=== PATIENT | female | born 1940 | race African-American/Black ===

== ENCOUNTER → 2016-12-24 | Outpatient (CLI) | payer MEDICARE, BC | END | disposition home or self-care (01) | LOC: MRI 09:36 | PROVIDERS: ATTEND Internal Medicine Nephrology | DX: M22.42 Chondromalacia patellae, left knee (principal); M25.462 Effusion, left knee | CPT/HCPCS: 73721 ==

== ENCOUNTER → 2017-08-06 | Outpatient (CLI) | payer MEDICARE, BC | END | disposition home or self-care (01) | LOC: MRI 16:37 | PROVIDERS: ATTEND Internal Medicine Nephrology | DX: M47.896 Other spondylosis, lumbar region (principal); M48.061 Spinal stenosis, lumbar region without neurogenic claudication | CPT/HCPCS: 72148 ==

== ENCOUNTER → 2017-11-11 | Outpatient (CLI) | payer MEDICARE, BC ==
[~2017-11-11] MED LIST: BARIUM SULFATE 450ML ORAL SUSP ONE; IOHEXOL-300 100 ML BOTTLE ONE
== END | disposition home or self-care (01) ==
LOC: MAMMO 09:15
PROVIDERS: ATTEND Internal Medicine Nephrology
DX: Z12.31 Encounter for screening mammogram for malignant neoplasm of breast (principal); D25.9 Leiomyoma of uterus, unspecified; R19.09 Other intra-abdominal and pelvic swelling, mass and lump
CPT/HCPCS: 71260; 74177; 77067; Q9967

== ENCOUNTER → 2018-01-12 | Outpatient (CLI) | payer MEDICARE, BC ==
[2018-01-12 14:51] LABS: BASOPHILS % 0.6 % (0.0-2.0); EOSINOPHILS % 2.3 % (0.0-5.0); MEAN CORPUSCULAR HEMOGLOBIN 27.7 pg (28.0-32.0); MEAN CORPUSCULAR VOLUME 83.4 fL (81.0-99.0); MEAN PLATELET VOLUME 7.3 fl (7.4-10.4); MONOCYTES % 11.1 % (2.0-8.0); PLATELET 330 x1000/uL (130-400); RED BLOOD CELL COUNT 3.24 mill/uL (4.2-5.4); RED CELL DISTRIBUTION WIDTH 15.7 % (11.6-14.6)
[2018-01-12 14:57] LABS: CHLORIDE 101 mEq/L (98-107)
== END | disposition home or self-care (01) ==
LOC: LAB 13:47
PROVIDERS: ATTEND Internal Medicine Hematology & Oncology
DX: C56.1 Malignant neoplasm of right ovary (principal)
CPT/HCPCS: 36415; 82378; 86304

== ENCOUNTER 2018-03-24 14:12 | Inpatient (IN) | payer MEDICARE, BC ==
[~2018-03-24] VITALS: Ht 157.5 cm; Wt 59.9 kg
[2018-03-25] VITALS (13 sets, daily range): BP systolic 96–123; BP diastolic 48–66
[2018-03-25] MEDS ORDERED: ONDANSETRON HCL 4MG/2ML INJ IV PRN (04:45)
[2018-03-25] MEDS ORDERED: DIPHENHYDRAMINE 50MG/ML VIAL IV PRN (04:45)
[2018-03-25] MEDS ORDERED: DOCUSATE SODIUM 100MG CAPSULE PO PRN (04:45)
[2018-03-25] MEDS ORDERED: CLONIDINE 0.1MG TABLET PO PRN (04:45)
[2018-03-25 04:57] LABS: BASOPHILS % 0.7 % (0.0-2.0); LYMPHOCYTES % 23.3 % (20.0-50.0); MEAN CORPUSCULAR HEMOGLOBIN 22.4 pg (28.0-32.0); MEAN CORPUSCULAR VOLUME 72.4 fL (81.0-99.0); MEAN PLATELET VOLUME 7.3 fl (7.4-10.4); MONOCYTES % 11.9 % (2.0-8.0); NEUTROPHILS % 63.1 % (40.0-76.0); PLATELET 538 x1000/uL (130-400); RED BLOOD CELL COUNT 2.49 mill/uL (4.2-5.4); RED CELL DISTRIBUTION WIDTH 18.7 % (11.6-14.6)
[2018-03-25 05:06] LABS: HEMOGLOBIN. 5.6 g/dL (12.0-16.0)
[2018-03-25 05:14] LABS: CHLORIDE 104 mEq/L (98-107)
[2018-03-25 05:20] LABS: TOTAL IRON BINDING CAPACITY 410 ug/dL (250-450)
[2018-03-25 05:45] LABS: VITAMIN B12 SERUM 918 pg/mL (211-911)
[2018-03-25] MEDS ORDERED: DIATR MEGLU/DIATRIZOATE SOLN 30ML PO SCH (08:45)
[2018-03-25] MEDS: HEMORRHOIDAL SUPP PR SCH ×2 (11:30→20:27)
[2018-03-25] MEDS: PANTOPRAZOLE SODIUM 40 MG/VIAL IV SCH ×2 (15:01→20:27)
[2018-03-25] MEDS: IRON SUCROSE COMPLEX 100 MG/5 ML ML IV SCH (15:01)
[2018-03-25 18:38] LABS: HEMATOCRIT 22.5 % (36.0-48.0); HEMOGLOBIN 7.1 g/dL (12.0-16.0)
[2018-03-25 18:39] LABS: INR 1.1; PROTHROMBIN TIME 11.4 sec (9.1-11.1)
[2018-03-25] MEDS: ACETAMINOPHEN 325MG TABLET PO PRN (23:44)
[2018-03-26] VITALS (7 sets, daily range): BP systolic 83–138; BP diastolic 46–75
[2018-03-26 05:44] LABS: BASOPHILS % 0.5 % (0.0-2.0); EOSINOPHILS % 0.8 % (0.0-5.0); HEMATOCRIT. 27.6 % (36.0-48.0); HEMOGLOBIN. 8.9 g/dL (12.0-16.0); LYMPHOCYTES % 18.6 % (20.0-50.0); MEAN CORPUSCULAR HEMOGLOBIN 24.2 pg (28.0-32.0); MEAN CORPUSCULAR VOLUME 75.7 fL (81.0-99.0); MEAN PLATELET VOLUME 7.6 fl (7.4-10.4); MONOCYTES % 10.6 % (2.0-8.0); NEUTROPHILS % 69.5 % (40.0-76.0); PLATELET 556 x1000/uL (130-400); RED BLOOD CELL COUNT 3.65 mill/uL (4.2-5.4); RED CELL DISTRIBUTION WIDTH 19.5 % (11.6-14.6)
[2018-03-26 05:48] LABS: INR 1.2; PROTHROMBIN TIME 11.6 sec (9.1-11.1)
[2018-03-26 06:09] LABS: CHLORIDE 103 mEq/L (98-107)
[2018-03-26] MEDS: ACETAMINOPHEN 325MG TABLET PO PRN (06:24)
[2018-03-26] MEDS: PANTOPRAZOLE SODIUM 40 MG/VIAL IV SCH ×2 (08:13→20:43)
[2018-03-26] MEDS: IRON SUCROSE COMPLEX 100 MG/5 ML ML IV SCH (08:13)
[2018-03-26] MEDS: HEMORRHOIDAL SUPP PR SCH ×2 (08:25→20:49)
[2018-03-26 09:45] LABS: BASOPHILS % 0.5 % (0.0-2.0); HEMATOCRIT. 26.1 % (36.0-48.0); HEMOGLOBIN. 8.4 g/dL (12.0-16.0); LYMPHOCYTES % 19.3 % (20.0-50.0); MEAN CORPUSCULAR HEMOGLOBIN 24.5 pg (28.0-32.0); MEAN CORPUSCULAR VOLUME 76.3 fL (81.0-99.0); MEAN PLATELET VOLUME 7.3 fl (7.4-10.4); MONOCYTES % 11.3 % (2.0-8.0); NEUTROPHILS % 67.9 % (40.0-76.0); PLATELET 539 x1000/uL (130-400); RED BLOOD CELL COUNT 3.42 mill/uL (4.2-5.4); RED CELL DISTRIBUTION WIDTH 19.6 % (11.6-14.6)
[2018-03-26] MEDS: HYDROCODONE/ACETAMINOPHEN 5/325MG TABLET PO PRN (21:23)
[2018-03-26 22:03] LABS: HEMATOCRIT 26.4 % (36.0-48.0); HEMOGLOBIN 8.4 g/dL (12.0-16.0)
[2018-03-27 00:11] VITALS: BP 127/68
[2018-03-27 04:00] VITALS: BP 117/69
[2018-03-27 07:31] LABS: CHLORIDE 104 mEq/L (98-107)
[2018-03-27 07:53] LABS: BASOPHILS % 0.3 % (0.0-2.0); EOSINOPHILS % 0.7 % (0.0-5.0); HEMATOCRIT. 24.3 % (36.0-48.0); HEMOGLOBIN. 7.7 g/dL (12.0-16.0); MEAN CORPUSCULAR HEMOGLOBIN 24.2 pg (28.0-32.0); MEAN CORPUSCULAR VOLUME 75.9 fL (81.0-99.0); MEAN PLATELET VOLUME 7.5 fl (7.4-10.4); MONOCYTES % 11.7 % (2.0-8.0); NEUTROPHILS % 70.3 % (40.0-76.0); PLATELET 471 x1000/uL (130-400); RED BLOOD CELL COUNT 3.21 mill/uL (4.2-5.4); RED CELL DISTRIBUTION WIDTH 20.6 % (11.6-14.6)
[2018-03-27 08:00] VITALS: BP 112/66
[2018-03-27] MEDS ORDERED: IRON SUCROSE COMPLEX 100 MG in SODIUM CHLORIDE 0.9% 100 ML IV SCH (09:00)
[2018-03-27] MEDS: PANTOPRAZOLE SODIUM 40 MG/VIAL IV SCH (10:55)
[2018-03-27] MEDS: HEMORRHOIDAL SUPP PR SCH (11:23)
[2018-03-27 11:41] LABS: HEMATOCRIT 26.4 % (36.0-48.0); HEMOGLOBIN 8.5 g/dL (12.0-16.0)
[2018-03-27 12:00] VITALS: BP 118/71
[2018-03-27 13:48] VITALS: BP 119/76
[2018-03-27] MEDS: HYDROCODONE/ACETAMINOPHEN 5/325MG TABLET PO PRN (13:48)
[2018-03-28] MEDS ORDERED: IRON SUCROSE COMPLEX 100 MG/5 ML ML IV SCH (09:00)
== END 2018-03-27 18:30 | disposition home or self-care (01) | DRG 812 ==
LOC: 6EST 14:12
PROVIDERS: ADMIT Internal Medicine Nephrology; ATTEND Internal Medicine Nephrology
PROC: 30233N1 Transfusion of Nonautologous Red Blood Cells into Peripheral Vein, Percutaneous Approach (ICD-10-PCS; principal; 2018-03-25)
DX: D50.9 Iron deficiency anemia, unspecified (principal); C78.7 Secondary malignant neoplasm of liver and intrahepatic bile duct; R18.8 Other ascites; C56.9 Malignant neoplasm of unspecified ovary; C78.00 Secondary malignant neoplasm of unspecified lung; C79.81 Secondary malignant neoplasm of breast; D25.9 Leiomyoma of uterus, unspecified; I10 Essential (primary) hypertension; K59.00 Constipation, unspecified; N83.9 Noninflammatory disorder of ovary, fallopian tube and broad ligament, unspecified; K64.8 Other hemorrhoids; Z79.899 Other long term (current) drug therapy
CPT/HCPCS: 36415; 76705; 80048; 82270; 82607; 83540; 83550; 83735; 84484; 85014; 85018; 85049; 85384; 86850; 86900; 86920; 93005; 93970; C9113; J2405; J7040; J7050; P9016

== ENCOUNTER 2018-03-30 14:06 | Inpatient (IN) | payer MEDICARE, BC ==
[~2018-03-30] VITALS: Ht 157.5 cm; Wt 59.9 kg
[2018-03-30] MEDS ORDERED: ACETAMINOPHEN 325MG TABLET PO PRN (14:45)
[2018-03-30] MEDS ORDERED: ONDANSETRON HCL 4MG/2ML INJ IV PRN (14:45)
[2018-03-30] MEDS ORDERED: CLONIDINE 0.1MG TABLET PO PRN (14:45)
[2018-03-30 15:30] VITALS: BP 106/65
[2018-03-30 16:00] VITALS: BP 107/65
[2018-03-30 17:50] LABS: HEMATOCRIT. 25.6 % (36.0-48.0); HEMOGLOBIN. 8.1 g/dL (12.0-16.0); MEAN CORPUSCULAR HEMOGLOBIN 24.7 pg (28.0-32.0); MEAN CORPUSCULAR VOLUME 77.9 fL (81.0-99.0); MEAN PLATELET VOLUME 7.4 fl (7.4-10.4); PLATELET 395 x1000/uL (130-400); RED BLOOD CELL COUNT 3.29 mill/uL (4.2-5.4); RED CELL DISTRIBUTION WIDTH 22.8 % (11.6-14.6)
[2018-03-30 17:58] LABS: CHLORIDE 102 mEq/L (98-107)
[2018-03-30 18:04] LABS: TOTAL IRON BINDING CAPACITY 305 ug/dL (250-450)
[2018-03-30 18:18] LABS: PLATELET ESTIMATE NORMAL
[2018-03-30 20:00] VITALS: BP 115/74
[2018-03-30] MEDS: PANTOPRAZOLE SODIUM 40 MG/VIAL IV SCH (21:53)
[2018-03-30] MEDS ORDERED: HYDROCODONE/ACETAMINOPHEN 5/325MG TABLET PO PRN (22:15)
[2018-03-30] MEDS ORDERED: KETOROLAC 15MG/ML VIAL IV NR (22:30)
[2018-03-30 23:42] LABS: HEMATOCRIT 23.3 % (36.0-48.0); HEMOGLOBIN 7.5 g/dL (12.0-16.0)
[2018-03-31] VITALS: BP 142/80
[2018-03-31 04:00] VITALS: BP 117/66
[2018-03-31 07:23] LABS: HEMATOCRIT. 25.1 % (36.0-48.0); MEAN CORPUSCULAR VOLUME 78.3 fL (81.0-99.0); MEAN PLATELET VOLUME 7.7 fl (7.4-10.4); PLATELET 403 x1000/uL (130-400); RED BLOOD CELL COUNT 3.21 mill/uL (4.2-5.4); RED CELL DISTRIBUTION WIDTH 23.5 % (11.6-14.6)
[2018-03-31 08:00] VITALS: BP 122/68
[2018-03-31 08:11] LABS: CHLORIDE 101 mEq/L (98-107)
[2018-03-31 08:19] LABS: PHOSPHORUS 3.2 mg/dL (2.5-4.9)
[2018-03-31] MEDS ORDERED: POTASSIUM CHLORIDE 20MEQ TABLET SR PO NR (09:30)
[2018-03-31] MEDS: PANTOPRAZOLE SODIUM 40 MG/VIAL IV SCH ×3 (10:53→22:08)
[2018-03-31] MEDS: KETOROLAC 15MG/ML VIAL IV PRN ×2 (10:55→22:10)
[2018-03-31 12:00] VITALS: BP 89/53
[2018-03-31] MEDS ORDERED: FERROUS SULFATE 325MG TABLET PO SCH (12:50)
[2018-03-31 16:00] VITALS: BP 118/73
[2018-03-31] MEDS ORDERED: SORBITOL 70% SOLN 30ML PO SCH ×2 (16:00→20:00)
[2018-03-31 16:55] LABS: HEMATOCRIT 26.9 % (36.0-48.0); HEMOGLOBIN 8.5 g/dL (12.0-16.0)
[2018-03-31 20:38] LABS: PLATELET ESTIMATE INCREASED
[2018-03-31] MEDS: DEXT 5%/0.9% NACL 1,000 ML IV SCH (22:07)
[2018-03-31 23:48] LABS: HEMATOCRIT 24.6 % (36.0-48.0); HEMOGLOBIN 7.8 g/dL (12.0-16.0)
[2018-04-01] VITALS (8 sets, daily range): BP systolic 102–152; BP diastolic 61–83
[2018-04-01] MEDS: KETOROLAC 15MG/ML VIAL IV PRN (05:45)
[2018-04-01 06:29] LABS: CHLORIDE 105 mEq/L (98-107)
[2018-04-01 06:34] LABS: HEMOGLOBIN. 7.8 g/dL (12.0-16.0); MEAN CORPUSCULAR HEMOGLOBIN 24.8 pg (28.0-32.0); MEAN CORPUSCULAR VOLUME 78.8 fL (81.0-99.0); PLATELET 388 x1000/uL (130-400); RED BLOOD CELL COUNT 3.17 mill/uL (4.2-5.4); RED CELL DISTRIBUTION WIDTH 24.8 % (11.6-14.6)
[2018-04-01 06:37] LABS: PHOSPHORUS 3.2 mg/dL (2.5-4.9)
[2018-04-01 06:59] LABS: INR 1.3; PARTIAL THROMBOPLASTIN TIME 29.2 sec (23.4-31.0); PROTHROMBIN TIME 12.7 sec (9.1-11.1)
[2018-04-01] MEDS ORDERED: NA PHOS,M-B/NA PHOS,DI-BA ENEMA 118ML PR SCH (08:00)
[2018-04-01 14:00] LABS: PLATELET ESTIMATE NORMAL
[2018-04-01 15:55] LABS: HEMATOCRIT 24.6 % (36.0-48.0); HEMOGLOBIN 7.8 g/dL (12.0-16.0)
[2018-04-01] MEDS: DEXT 5%/0.9% NACL 1,000 ML IV SCH (21:32)
[2018-04-01] MEDS: PANTOPRAZOLE SODIUM 40 MG/VIAL IV SCH (22:09)
[2018-04-02] VITALS: BP 128/69
[2018-04-02 01:05] LABS: HEMATOCRIT 27.1 % (36.0-48.0); HEMOGLOBIN 8.7 g/dL (12.0-16.0)
[2018-04-02 04:00] VITALS: BP 121/52
[2018-04-02 06:33] LABS: CHLORIDE 107 mEq/L (98-107)
[2018-04-02 07:05] LABS: BASOPHILS % 0.3 % (0.0-2.0); EOSINOPHILS % 0.1 % (0.0-5.0); HEMATOCRIT. 27.3 % (36.0-48.0); HEMOGLOBIN. 8.6 g/dL (12.0-16.0); LYMPHOCYTES % 19.9 % (20.0-50.0); MEAN CORPUSCULAR HEMOGLOBIN 25.6 pg (28.0-32.0); MEAN CORPUSCULAR VOLUME 81.4 fL (81.0-99.0); MEAN PLATELET VOLUME 8.2 fl (7.4-10.4); MONOCYTES % 11.4 % (2.0-8.0); NEUTROPHILS % 68.3 % (40.0-76.0); PLATELET 336 x1000/uL (130-400); RED BLOOD CELL COUNT 3.36 mill/uL (4.2-5.4); RED CELL DISTRIBUTION WIDTH 27.1 % (11.6-14.6)
[2018-04-02 08:00] VITALS: BP 128/63
[2018-04-02] MEDS: PANTOPRAZOLE SODIUM 40 MG/VIAL IV SCH ×2 (09:49→21:00)
[2018-04-02 12:00] VITALS: BP 117/55
[2018-04-02 16:00] VITALS: BP 131/77
[2018-04-02] MEDS: DEXT 5%/0.9% NACL 1,000 ML IV SCH (19:36)
[2018-04-02 20:00] VITALS: BP 128/79
[2018-04-03 00:09] VITALS: BP 126/72
[2018-04-03 04:43] VITALS: BP 138/56
[2018-04-03 06:31] LABS: HEMATOCRIT. 26.4 % (36.0-48.0); HEMOGLOBIN. 8.4 g/dL (12.0-16.0); MEAN CORPUSCULAR HEMOGLOBIN 25.6 pg (28.0-32.0); MEAN CORPUSCULAR VOLUME 80.8 fL (81.0-99.0); MEAN PLATELET VOLUME 8.6 fl (7.4-10.4); PLATELET 365 x1000/uL (130-400); RED BLOOD CELL COUNT 3.27 mill/uL (4.2-5.4); RED CELL DISTRIBUTION WIDTH 28.3 % (11.6-14.6)
[2018-04-03 06:36] LABS: CHLORIDE 107 mEq/L (98-107)
[2018-04-03] MEDS: DEXT 5%/0.9% NACL 1,000 ML IV SCH (06:47)
[2018-04-03 08:00] VITALS: BP 135/72
[2018-04-03] MEDS: PANTOPRAZOLE SODIUM 40 MG/VIAL IV SCH (08:14)
[2018-04-03] MEDS ORDERED: POTASSIUM CHLORIDE 20MEQ TABLET SR PO SCH (10:15)
[2018-04-03 12:02] VITALS: BP 135/72
[2018-04-03 16:00] VITALS: BP 145/83
[2018-04-03 17:34] LABS: PLATELET ESTIMATE NORMAL
== END 2018-04-03 17:15 | disposition home or self-care (01) | DRG 377 ==
LOC: 6EST 14:06 → 6WST 04-01 16:30
PROVIDERS: ADMIT Internal Medicine Nephrology; ATTEND Internal Medicine Nephrology
PROC: 30233N1 Transfusion of Nonautologous Red Blood Cells into Peripheral Vein, Percutaneous Approach (ICD-10-PCS; principal; 2018-04-01)
DX: K92.2 Gastrointestinal hemorrhage, unspecified (principal); E43 Unspecified severe protein-calorie malnutrition; C56.9 Malignant neoplasm of unspecified ovary; C78.7 Secondary malignant neoplasm of liver and intrahepatic bile duct; J98.11 Atelectasis; D50.9 Iron deficiency anemia, unspecified; E87.6 Hypokalemia; I10 Essential (primary) hypertension; K59.00 Constipation, unspecified; Z88.5 Allergy status to narcotic agent; Z68.24 Body mass index [BMI] 24.0-24.9, adult
CPT/HCPCS: 36415; 71045; 80048; 82270; 83540; 83550; 83735; 84100; 84484; 85014; 85018; 86850; 86900; 86920; 87804; 93005; C1893; C9113; J1885; J2405; J7042; J7050; P9016